=== PATIENT | male | born 1965 | race Caucasian/White ===

== ENCOUNTER 2021-10-24 09:04 | Emergency (ER) | payer BC ==
[~2021-10-24] VITALS: Ht 154.9 cm; Wt 69.8 kg
[2021-10-24 09:11] VITALS: BP 147/81
[2021-10-24 09:15] VITALS: BP 148/82
[2021-10-24 09:31] VITALS: BP 127/109
[2021-10-24 11:01] VITALS: BP 127/109
[2021-10-24] MEDS ORDERED: CEPHALEXIN500 M1 PO (11:07)
== END 2021-10-24 11:07 | disposition home or self-care (01) | DRG 603 ==
LOC: ED 09:04
DX: L03.012 Cellulitis of left finger (principal); L03.011 Cellulitis of right finger; E11.9 Type 2 diabetes mellitus without complications; E78.5 Hyperlipidemia, unspecified